=== PATIENT | male | born 1965 | race Caucasian/White ===

== ENCOUNTER → 2017-06-21 | Day surgery (SDC) | payer OTHER ==
[~2017-06-21] VITALS: Ht 182.9 cm; Wt 77.2 kg
[2017-06-21] VITALS (9 sets, daily range): BP systolic 95–135; BP diastolic 47–81; PULSE 41–55; TEMP 37.1; O2SAT 98–100; Ht 182.9 cm; Wt 77.2 kg
[~2017-06-21] MED LIST: PROPOFOL IV EMULSION 10 MG/ML 20 ML VIAL IV ONE
--- NOTE | 2017-06-21 07:30 | History & Physical Bridge Note ---
H&P Re-Evaluation Bridge Note: I have examined the patient, reviewed the History & Physical and in the interval since the performance of the History & Physical I have noted the following changes of clinical significance: No changes noted since H and P performed as outpatient by Dr Lantigua on 06/16/17. Examination: Last Vital Signs Documentation Date Time Temp Pulse Resp B/P (MAP) Pulse Ox O2 Delivery O2 Flow Rate FiO2 06/21/17 07:04 37.1 53 16 135/68 (90) 100 Nasal Cannula 3 CV: regular 2/6 SM characteristic of MR noted on examination. Lungs are clear. No edema Impression: MVP, MR on TTE. Plan: Proceed with GUILLERMO for further anatomical and functional assessment of MR. Informed consent obtained.
--- NOTE | 2017-06-21 08:40 | Discharge Instructions ---
Discharge Instructions Procedure Procedure Date: Jun 21, 2017. Reason for Visit: Mitral valve regurgitation Discharge Discharge Date: Jun 21, 2017. Discharge Diagnosis: Mitral valve prolapse , partially flail posterior MV leaflet, severe mitral regurgitation. Last Recorded Wt (Kilograms): 77.2 Anesthesia Post Anesthesia Instructions: If you have had General Anesthesia or IV Sedation: * Do not drive today. * Resume driving when surgeon permits. * Do not make important decisions or sign legal documents today. * Call surgeon for: 1. Temperature elevations greater than 101 degrees F. 2. Uncontrollable pain. 3. Excessive bleeding. 4. Persistent nausea and vomiting. 5. Medication intolerance (nausea, vomiting or rash). * For nausea and vomiting use only clear liquids such as: tea, soda, bouillon until nausea subsides, then gradually increase diet as tolerated. * If you have any concerns or questions, call your surgeon's office. If physician is unavailable and it is an emergency, call 911 or go to the nearest emergency room. Instructions Activity Recommendations: limitations as noted below Recommended Home Diet: resume previous diet Allergies: Coded Allergies: No Known Allergies (Unverified Allergy, Mild, 02/28/07) Provider Instructions ACTIVITY RECOMMENDATIONS: Resume activities as tolerated with no limitations unless specified. _x_ No lifting over _10_ pounds for 24 hours. _x_ Do not engage in vigorous exercise, sexual activity, or sports for 24 hours. _x_ Do not drive or operate any motorized equipment for 24 hours. _x_ You may return to work/school tomorrow. _x_ Nothing to eat or drink until gag reflex returns. _x_ No HOT or WARM liquids for 24__ hours. _x Avoid "scratchy" foods such as potato chips or pretzels for 24 hours following procedure. SPECIAL CARE: If you experience coughing up or vomiting of blood, contact _Dr Del Cid __ Follow Up Follow-up with: Follow up with Dr Lantigua as planned. Gabby Zapata Recommendations: Call your doctor if: * Temperature above 101 degrees * Pain not relieved by pain medicine ordered * There is increased drainage or redness from any incision * You have any unanswered questions or concerns. Your Doctors Instructions noted above were prepared by provider Javan Del Cid. Patient Signature Section: Patient Instructions Signature Page Jamie Lima Patient (or Guardian) Signature/Date: I have read and understand the instructions given to me by my caregivers. Caregiver/RN/Doctor Signature/Date: The above-named patient and/or guardian has received patient instructions on this date. + Original Patient Signature Page (only) stays with chart. Please make copy for patient.
--- NOTE | 2017-06-21 08:43 | Cardiology Procedure Brief Nt ---
Preliminary Cardiology Note Procedure Date Jun 21, 2017. Pre-Procedure Diagnosis mitral regurgitation Post-Procedure Diagnosis severe mitral regurgitation Procedure(s) Performed GUILLERMO Conservation Worker Nacho Del Cid DO En[employer] Machine Operator(s) Lena Alfred, TIAGO Estimated Blood Loss none Preliminary Findings Severe prolapse, partially flail leaflet of the P2 segment of the posterior mitral valve with ruptured chord visualized and resultant severe mitral regurgitation. Recommendations Follow up with Dr Lantigua. CT surgery consultation as outpatient to discuss mitral valve surgery. Specimens none Anesthesia Propofol 400 mg IV Complication(s) None Disposition cardiac label fuser tender recovery area
--- NOTE | 2017-06-21 09:31 | Anesthesiology Progress Note ---
Anesthesia Post Op Note Date & Time Jun 21, 2017 at 09:31 Vital Signs Pain Intensity: 0 Vital Signs Past 12 Hours Date Time Temp Pulse Resp B/P (MAP) Pulse Ox O2 Delivery O2 Flow Rate FiO2 06/21/17 09:00 52 16 108/55 (72) 98 Room Air 06/21/17 08:55 45 16 107/55 (72) 98 Room Air 06/21/17 08:40 46 16 109/59 (76) 98 Room Air 06/21/17 08:30 46 16 101/54 (70) 98 Room Air 06/21/17 08:20 43 16 99/47 100 Nasal Cannula 3 06/21/17 08:15 45 16 99/53 100 Nasal Cannula 3 06/21/17 08:10 41 16 95/63 100 Nasal Cannula 3 06/21/17 08:05 47 16 97/48 100 Nasal Cannula 3 06/21/17 07:58 48 16 103/47 100 Nasal Cannula 3 06/21/17 07:53 52 16 107/52 100 Nasal Cannula 3 06/21/17 07:48 46 16 131/81 100 Nasal Cannula 3 06/21/17 07:04 37.1 53 16 135/68 (90) 100 Nasal Cannula 3 Notes Mental Status: alert / awake / arousable, participated in evaluation Pt Amnestic to Procedure: Yes Nausea / Vomiting: adequately controlled Pain: adequately controlled Airway Patency, RR, SpO2: stable & adequate BP & HR: stable & adequate Hydration State: stable & adequate Anesthetic Complications: no major complications apparent
--- NOTE | 2017-06-21 10:22 | TEE ---
*NOTICE TO RECEIVING DEMOCRAT AGENCY This information is strictly Confidential and protected under [place] law. [place] law prohibits you from making any further disclosure of this information unless further disclosure is expressly permitted by the written consent of the person to whom it pertains or is authorized by law. A general authorization for the release of medical or other information is not sufficient for this purpose. Hospital accepts no responsibility if the information is made available to any other person, INCLUDING THE PATIENT. Interpretation Summary * Name: MIKI VILLA Study Date: 06/21/2017 07:24 AM BP: 135/68 mmHg * Patient Location: C.CATH HR: 57 * : 1965 (M/d/yyyy) Gender: Male Height: 72 in * Age: 52 yrs Ethnicity: [place] Weight: 170 lb * Ordering Physician: Rikki Lantigua MD, [facility] * Performed By: Lena Alfred WALLY * * Reason For Study: Mitral valve regurgitation * BSA: 2.0 m2 * -- Conclusions -- * The left ventricle is normal in size. * The left atrium is mildly dilated. * There is severe prolapse of the P2 segment of the posterior mitral valve leaflet which is partially flail. * An associated ruptured chord is noted prolapsing to the left atrial aspect of the mitral valve during systole. * Severe mitral regurigation is present with an eccentric jet that impinges on the anterior mitral valve leaflet. * The interatrial septum is intact with no evidence for an atrial septal defect. * Doppler findings do not suggest pulmonary hypertension. * The aortic valve is trileaflet. * No aortic regurgitation is present. * The aortic root is mildly dilated with diameter of 4.2 cm. * The proximal ascending thoracic aorta is mildly dilated with diameter of 3.8 cm. * There is no significant atheromatous disease in the visualized portion of the thoracic aorta. Procedure Details * The transesophageal portion of this study was personally supervised by the undersigned interpreting physician. * GUILLERMO Probe #1 utilized for procedure. * The study was performed in Cardiac Catheterization Lab. * Time out was conducted by the physician, nurse, and medical tech with positive identification of patient and procedure. * Informed consent for Transesophageal Echocardiogram was obtained prior to the procedure. * An intravenous line was placed. A topical anesthetic agent was used for oropharangeal anesthesia. A bite block was inserted. * Sedation performed by the anesthesia department. * The posterior oropharynx was anesthetized using a topical anesthetic spray. A bite guard was inserted. * A multifrequency, multiplane transesopheageal echocardiographic endoscope was inserted and manipulated in the standard fashion to achieve multiplane views. * The transesophageal probe was passed without difficulty. * The usual views were obtained; basal, mid-esophageal, transgastric and aortic views. * The patient tolerated the procedure well without evidence of orophangeal or esophageal trauma. * A 2D transesophageal echocardiogram with spectral and color flow Doppler was performed. * Contrast injection with agitated saline was performed. * Start time: 0748 End time: 0820 400mcg Propofol used for procedure. * A 2D transesophageal echocardiogram with Doppler and color flow Doppler was performed. Left Ventricle * The left ventricle is normal in size. * There is normal left ventricular wall thickness. * Left ventricular systolic function is normal. * The qualitative LV ejection fraction=60% * The left ventricular wall motion is normal. Right Ventricle * The right ventricle is normal in size and function. Atria * The left atrium is mildly dilated. * No left atrial mass or thrombus visualized. * No thrombus is detected in the left atrial appendage. * Right atrial size is normal. * The interatrial septum is intact with no evidence for an atrial septal defect. Mitral Valve * There is severe prolapse of the P2 segment of the posterior leaflet which is partially flail. An associated ruptured chord is noted prolapsing to the left atrial aspect of the debar valve during systole. * There is no mitral valve stenosis. * Severe mitral regurigation is present with an eccentric jet that impinges the anterior mitral valve leaflet. Tricuspid Valve * The tricuspid valve is normal. * There is no tricuspid stenosis. * Significant tricuspid regurgitation is absent. * Doppler findings do not suggest pulmonary hypertension. Aortic Valve * The aortic valve is trileaflet. * Aortic stenosis is absent. * No aortic regurgitation is present. Pulmonic Valve * The pulmonic valve is not well seen, but is grossly normal. Great Vessels * The aortic root is mildly dilated with diameter of 4.2 cm. The proximal ascending thoracic aorta is mildly dilated with diameter of 3.8 cm. There is no significant atheromatous disease in the visualized portion of the thoracic aorta. Pericardium * There is no pericardial effusion. MMode 2D Measurements and Calculations asc Aorta Diam 4.0 cm
== END | disposition home or self-care (01) ==
LOC: C.CATH 06:59
PROVIDERS: ATTEND Specialist
DX: I34.1 Nonrheumatic mitral (valve) prolapse (principal); I34.0 Nonrheumatic mitral (valve) insufficiency; R01.1 Cardiac murmur, unspecified